=== PATIENT | male | born 2000 | race Caucasian/White ===

== ENCOUNTER 2022-03-14 21:01 | Emergency (ER) | payer OTHER ==
[2022-03-14 21:14] VITALS: BP 127/74; PULSE 101; RESP 16; TEMP 102.3; BMI 23.1
[2022-03-14] MEDS ORDERED: IBUPROFEN 600 MG TABLET (FP) PO ONE ×2 (22:17→22:20)
[2022-03-14] MEDS ORDERED: AZITHROMYCIN 500 MG TABLET PO ONE (22:18)
[2022-03-14] MEDS ORDERED: AZITHROMYCIN 250 MG TABLET ONE (22:20)
== END 2022-03-14 22:25 | disposition home or self-care (01) ==
LOC: FER 21:01
DX: J18.9 Pneumonia, unspecified organism (principal); J32.9 Chronic sinusitis, unspecified
CPT/HCPCS: 0241U-QW; 99283-25